=== PATIENT | female | born 1975 | race Caucasian/White ===

== ENCOUNTER → 2018-03-18 15:51 | Outpatient (CLI) | payer OTHER, SELFPAY ==
--- NOTE | 2018-03-18 | MM_ITS ---
MM Dig screening mamm BI w/CAD ORDERING PHYSICIAN : Aparna Farfan PATIENT AGE: 43 years GENDER: Female COMPARISON: February 2010, January 2013, March 2014, INDICATION: ITS.REASON: ROUTINE 43-year-old. No hormones. No new complaints noncontributory family history. TECHNIQUE: Standard CC and MLO images were obtained. R2 CAD reviewed. FINDINGS: Dense breast bilaterally, decreased sensitivity in breast of this diffusely dense character. Mild asymmetry again noted similar to previous studies. But prior films are helpful in demonstrating no prominent significant new findings. Stable overall breast pattern with no dominant mass or suspicious calcification features. RIGHT BREAST:No significant new findings LEFT BREAST:No significant new findings IMPRESSION: . no significant new findings. Dense breasts decrease sensitivity mammography, but we see no significant new areas of concern. Bilateral follow-up in one year recommended. Self breast examination may be of benefit & if any palpable areas arise ultrasound can be useful compliment to mammography in breast of this diffuse increased density. BI-RADS Category: 2 Benign Finding(s) RECOMMENDED FOLLOW-UP: 1YR 1 YEAR FOLLOW-UP (A letter has been sent to the patient regarding results of the study.)
[2018-03-18 16:37] LABS: Basophils % 0.5 % (0.1-2.0); Eosinophils # 0.1 K/mm3 (0.0-0.4); Eosinophils % 1.3 % (0.1-12.0); Hematocrit 46.9 % (37.0-47.0); Hemoglobin 15.4 g/dL (12.2-16.2); Lymphocytes # 2.3 K/mm3 (0.7-4.5); Lymphocytes % 30.5 K/mm3 (10-50); Mean Corpuscular HGB Conc 32.8 g/dL (31.8-35.4); Mean Corpuscular Hemoglobin 31.3 pg (27.0-31.2); Mean Corpuscular Volume 95.3 fl (81-99); Mean Platelet Volume 9.6 fl (7.4-10.4); Monocytes # 0.5 K/mm3 (0.1-1.0); Monocytes % 5.9 % (1.7-9.3); Neutrophils # 4.7 K/mm3 (1.8-7.8); Neutrophils % 61.9 % (37.0-80.0); Platelet Count 202 K/mm3 (142-424); Red Blood Count 4.92 M/mm3 (4.20-5.40); Red Cell Distribution Width 12.4 % (11.5-17.5); White Blood Count 7.6 K/mm3 (4.8-10.8)
[2018-03-18 18:57] LABS: Alanine Aminotransferase 27 U/L (12-78); Albumin Level 3.8 gm/dL (3.4-5.0); Albumin/Globulin Ratio 1.3 (1.1-1.8); Alkaline Phosphatase 100 U/L (46-116); Anion Gap 13.3 mEq/L (5-15); Aspartate Amino Transferase 17 U/L (15-37); Bilirubin,Total 0.5 mg/dL (0.2-1.0); Blood Urea Nitrogen 4 mg/dL (7-18); Calcium 8.7 mg/dL (8.5-10.1); Carbon Dioxide 28 mmol/L (21.0-32.0); Chloride 102 mmol/L (98-107); Chol/HDL Ratio 3.2 (1-3.5); Cholesterol 159 mg/dL (140-200); Creatinine,Serum 0.56 mg/dL (0.55-1.02); Estimated Glomerular Filt Rate 117 ml/min (>60); GFR (African American) 142 ML/MIN (>60); Globulin 2.9 gm/dl (1.3-3.2); Glucose 102 mg/dL (74-106); HDL Cholesterol 50 mg/dL (29-89); LDL Cholesterol 97 mg/dL (0-130); Potassium 3.3 mmoL/L (3.5-5.1); Sodium 140 mmol/L (136-145); Total Protein,Serum 6.7 gm/dL (6.4-8.2); Triglycerides 62 mg/dL (30-200); VLDL Cholesterol 12 mg/dL (0-40)
[2018-03-20 07:10] LABS: Vitamin B12 432 pg/mL (232-1245)
[2018-03-20 15:42] LABS: Vitamin D 25 Hydroxy 47.3 ng/mL (30.0-100.0)
== END ==
LOC: RAD 15:51
PROVIDERS: Family Provider Internal Medicine; PCP Internal Medicine Adolescent Medicine; Visit Provider Nurse Practitioner Family
DX: Z00.00 Encounter for general adult medical examination without abnormal findings (principal); Z12.31 Encounter for screening mammogram for malignant neoplasm of breast; R53.83 Other fatigue
CPT/HCPCS: 77067; 80053; 80061; 82607; 82652; 84443; 85025

== ENCOUNTER → 2019-07-02 11:34 | Outpatient (CLI) | payer OTHER, SELFPAY ==
--- NOTE | 2019-07-02 11:40 | XR_ITS ---
PROCEDURE: XR FOOT LT MIN 3V CLINICAL INDICATION: LEFT FOOT PAIN COMPARISON: No exams were available for comparison FINDINGS: There is a nondisplaced fracture of the distal shaft of the 5th metatarsal without significant displacement or angulation. There is no involvement of the joint space. The joint spaces are well-preserved. No significant degenerative/arthritic changes. No erosive changes evident. Other findings:None. IMPRESSION: Fracture distal shaft 5th metatarsal. Dictated by: Hao Flores 07/02/2019 12:57 Electronically signed by Hao Flores in [place] 07/02/2019 12:57
== END ==
PROVIDERS: PCP Internal Medicine Adolescent Medicine; Visit Provider Nurse Practitioner Family
DX: M79.672 Pain in left foot (principal)
CPT/HCPCS: 73630

== ENCOUNTER 2019-07-03 16:21 | Outpatient (RCR) | payer OTHER, SELFPAY | END 2019-07-03 17:00 | disposition home or self-care (01) | LOC: PT 16:21 | PROVIDERS: Visit Provider Internal Medicine Adolescent Medicine | DX: S92.355A Nondisplaced fracture of fifth metatarsal bone, left foot, initial encounter for closed fracture (principal); T14.8XXA Other injury of unspecified body region, initial encounter | CPT/HCPCS: 97760 ==

== ENCOUNTER → 2019-08-10 08:32 | Outpatient (CLI) | payer OTHER, SELFPAY ==
--- NOTE | 2019-08-10 08:48 | MM_ITS ---
PROCEDURE: MM DIG SCREENING MAMM BI W/CAD CLINICAL INDICATION: SCREENING There is no personal or family history of breast cancer. COMPARISON: [facility] DIG MAMM-SCREEN VIRIDIANA from 01/27/2013 [facility] DIG MAMM-SCREEN VIRIDIANA from 03/16/2014 [facility] MM Dig screening mamm BI w/CAD from 03/18/2018 TECHNIQUE: Standard CC and MLO images and 3D Tomosynthesis was obtained. R2 CAD reviewed. FINDINGS: There is a markedly dense and diffuse heterogenic parenchymal pattern bilaterally. Tomogram images are most helpful in this type of breast parenchyma. There is a possible asymmetric density central portion left breast somewhat indeterminate even with tomogram images. This likely is asymmetric glandular tissue with surrounding normal appearing fat however recommend the patient return for spot compression views an ultrasound may be necessary as well. There are no suspicious microcalcifications. IMPRESSION: Dense and heterogenic parenchymal pattern with possible developing asymmetric density left breast versus summation shadow of dense and heterogenic glandular elements BI-RAD Category: 0 Need Additional Imaging Evaluation FOLLOW-UP: IMM Immediate Follow-up Recommended (A letter has been sent to the patient regarding results of the study.) Dictated by: Dr. Rafael Phillips MD 08/12/2019 12:[address] Rafael Phillips MD in [place] 08/12/2019 12:31
== END ==
PROVIDERS: PCP Internal Medicine Adolescent Medicine; Visit Provider Nurse Practitioner Family
DX: Z12.31 Encounter for screening mammogram for malignant neoplasm of breast (principal)
CPT/HCPCS: 77063; 77067

== ENCOUNTER → 2019-11-12 14:37 | Outpatient (CLI) | payer OTHER, SELFPAY ==
--- NOTE | 2019-11-12 14:45 | MM_ITS ---
PROCEDURE: MM DIG MAMM DX UNILAT LT CAD Digital Breast Tomosynthesis Included Left breast ultrasound complete with axilla 8 and CLINICAL INDICATION: ABN MAMM COMPARISON: [facility] DIG MAMM-SCREEN VIRIDIANA from 03/16/2014 [facility] MM Dig screening mamm BI w/CAD from 03/18/2018 MM DIG SCREENING MAMM BI W/CAD from 08/10/2019 US BREAST LT COMPLETE from 11/12/2019 TECHNIQUE: Standard CC and MLO images and 3D Tomosynthesis was obtained. R2 CAD reviewed. FINDINGS: There is dense fibroglandular tissue. No malignant appearing mass or malignant-appearing microcalcification. Left breast ultrasound: At 3 o'clock position there is a 10 x 5 mm hypoechoic nodule with through transmission of sound and increased echogenicity centrally which may be due to small lymph node. At 6 o'clock there is a complicated cyst at 8 x 3 mm IMPRESSION: Probably benign findings. Recommend six-month sonographic and mammographic follow-up BI-RAD Category: 3 Probably Benign Finding Short Term Follow-up FOLLOW-UP: 6M 6Month Follow-up (A letter has been sent to the patient regarding results of the study.) Dictated by: Jerrell Cavanaugh MD 11/27/2019 09:33 Electronically signed by Jerrell Cavanaugh MD in [place] 11/27/2019 09:33
== END ==
LOC: RAD 14:37
PROVIDERS: PCP Internal Medicine Adolescent Medicine; Visit Provider Internal Medicine Adolescent Medicine
DX: R92.8 Other abnormal and inconclusive findings on diagnostic imaging of breast (principal)
CPT/HCPCS: 76641; 77061; 77065; G0279

== ENCOUNTER → 2021-01-26 15:16 | Outpatient (CLI) | payer OTHER, SELFPAY ==
--- NOTE | 2021-01-26 15:24 | XR_ITS ---
PROCEDURE: XR FOOT RT MIN 3V CLINICAL INDICATION: CELLULITIS OF FOOT COMPARISON: CR XR FOOT LT MIN 3V from 07/02/2019 FINDINGS: No fracture or dislocation. No lytic or blastic change. There is normal mineralization. The joint spaces are well-preserved. No significant degenerative/arthritic changes. No erosive changes evident. Other findings: No radiopaque foreign body apparent. No soft tissue gas. IMPRESSION: No acute findings. Dictated by: Jerrell Cavanaugh MD 01/26/2021 16:13 Jerrell Cavanaugh MD in [place] 01/26/2021 16:13
[2021-01-26 16:08] LABS: Basophils # 0.1 K/mm3 (0-0.2); Basophils % 1.1 % (0.1-2.0); Eosinophils # 0.3 K/mm3 (0.0-0.4); Eosinophils % 3.1 % (0.1-12.0); Hematocrit 39.6 % (37.0-47.0); Hemoglobin 13.9 g/dL (12.2-16.2); Lymphocytes # 2.2 K/mm3 (0.7-4.5); Lymphocytes % 25.2 % (10-50); Mean Corpuscular HGB Conc 35.2 g/dL (31.8-35.4); Mean Corpuscular Hemoglobin 31.4 pg (27.0-31.2); Mean Corpuscular Volume 89.1 fl (81-99); Monocytes # 0.4 K/mm3 (0.1-1.0); Neutrophils # 5.7 K/mm3 (1.8-7.8); Neutrophils % 65.6 % (37.0-80.0); Platelet Count 259 K/mm3 (142-424); Red Blood Count 4.45 M/mm3 (4.20-5.40); Red Cell Distribution Width 13.5 % (11.5-17.5); White Blood Count 8.7 K/mm3 (4.8-10.8)
[2021-01-26 16:41] LABS: Chloride 98 mmol/L (98-107); Sodium 138 mmol/L (136-145)
[2021-01-26 16:42] LABS: Potassium 3.7 mmoL/L (3.5-5.1)
[2021-01-26 16:44] LABS: Alanine Aminotransferase 18 U/L (12-78); Albumin Level 4.3 g/dl (3.5-5.0); Albumin/Globulin Ratio 1.7 (1.1-1.8); Alkaline Phosphatase 109 U/L (38-126); Anion Gap 10.7 mEq/L (5-15); Aspartate Amino Transferase 25 U/L (14-36); Bilirubin,Total 0.3 mg/dl (0.2-1.3); Blood Urea Nitrogen 3 mg/dl (7-17); Carbon Dioxide 33 mmol/L (22.0-30.0); Estimated Glomerular Filt Rate 132 ml/min (>60); GFR (African American) 159 ML/MIN (>60); Globulin 2.6 g/dL (1.3-3.2); Total Protein,Serum 6.9 g/dl (6.3-8.2)
[2021-01-26 16:45] LABS: Calcium 9.2 mg/dl (8.4-10.2); Chol/HDL Ratio 2.7 (1-3.5); Cholesterol 173 mg/dl (140-200); Glucose 91 mg/dl (74-100); HDL Cholesterol 63 mg/dl (40-60); Triglycerides 70 mg/dl (30-150); VLDL Cholesterol 14 mg/dL (0-40)
[2021-01-26 16:51] LABS: C-Reactive Protein 13.1 mg/L (0-4)
[2021-01-26 16:56] LABS: Direct LDL Cholesterol 92.24 mg/dL (100-129)
[2021-01-26 17:02] LABS: 25-OH Vitamin D, Total 50.1 ng/mL (30-100)
[2021-01-26 17:33] LABS: Erythrocyte Sedimentation Rate 23 mm/hr (0-20)
[2021-01-26 18:31] LABS: Vitamin B12 291 pg/mL (239-931)
== END ==
PROVIDERS: PCP Nurse Practitioner Family; Visit Provider Nurse Practitioner Family
DX: Z00.00 Encounter for general adult medical examination without abnormal findings (principal); R53.83 Other fatigue; L03.119 Cellulitis of unspecified part of limb
CPT/HCPCS: 36415; 73630; 80053; 80061; 82306; 82607; 84443; 85025; 85651; 86140

== ENCOUNTER → 2021-02-28 14:34 | Outpatient (CLI) | payer OTHER, SELFPAY | PROVIDERS: PCP Nurse Practitioner Family; Visit Provider Nurse Practitioner | DX: Z20.822 Contact with and (suspected) exposure to COVID-19 (principal) | CPT/HCPCS: C9803; U0003; U0005 ==

== ENCOUNTER 2021-03-15 09:53 | Emergency (ER) | payer OTHER, SELFPAY ==
[2021-03-15 10:00] VITALS: BP 118/92; PULSE 128; RESP 18; TEMP 36.8; O2SAT 98; BMI 18.6
--- NOTE | 2021-03-15 10:01 | PC.NURSE ---
Called for CT stroke protocol at this time
--- NOTE | 2021-03-15 10:02 | CT_ITS ---
PROCEDURE: CT HEAD/BRAIN WO CON CLINICAL INDICATION: stroke protocol Headache COMPARISON: No exams were available for comparison TECHNIQUE: Axial images obtained. All CT scans at the facility use one or more dose reduction, viz: automated exposure control, ma/kV adjustment per patient size (including targeted exams where dose is matched to indication, i.e. head), or iterative reconstruction technique. FINDINGS: No midline shift, mass effect, intracranial hemorrhage, hydrocephalus, or extra-axial fluid collection is evident. There is a 2 cm area of decreased attenuation in the left parietal occipital region. This could represent an area of acute or subacute infarction or even an area of encephalomalacia.. Suggest MRI for further evaluation. No intracranial hemorrhage apparent. The calvarium has an unremarkable appearance. No mastoid effusion. No sinus air-fluid level. IMPRESSION: 2 cm area of decreased attenuation in the peripheral aspect of the left parietal occipital junction which could represent an area of acute/subacute infarction or an area of encephalomalacia. Consider MRI for further evaluation. Dictated by: Jerrell Cavanaugh MD 03/15/2021 10:24 Jerrell Cavanaugh MD in [place] 03/15/2021 10:24
--- NOTE | 2021-03-15 10:03 | PC.NURSE ---
rad notified of Ct head stroke protocol
[2021-03-15 10:04] VITALS: BMI 18.6
--- NOTE | 2021-03-15 10:06 | HMH.EDGENADL ---
ED Disposition Clinical Impression: Stroke Qualifiers: CVA mechanism: embolism Precerebral and cerebral artery: unspecified cerebral artery Qualified Code(s): I63.40 - Cerebral infarction due to embolism of unspecified cerebral artery Disposition: Xfer Short-Term Hosp Condition on Discharge: Fair Referrals: James Harris MD [Primary Care Provider] - Forms: Transfer Record - ED - Critical Care Critical Care Time: No Attestation: On , the high probability of a clinically significant, sudden or life threatening deterioration of the following system(s) required my full and direct attention, intervention and personal management. The time I documented below is in addition to time spent performing reported procedures but includes the following listed in this critical care notation. Medical Decision Making - Ramon Inquiry Pt receiving controlled substance: No Vital Signs: 03/15/21 10:00 03/15/21 10:31 03/15/21 13:13 Temperature 98.2 F Temperature Source Oral Pulse Rate 115 H 110 H Pulse Rate [Right Radial] 128 H Respiratory Rate 18 16 Blood Pressure 132/87 127/82 Blood Pressure [Right Arm] 118/92 H Blood Pressure Mean [Right Arm] 100 Blood Pressure Source Automatic Cuff Blood Pressure Source [Right Arm] Automatic Cuff Blood Pressure Position Sitting Blood Pressure Position [Right Arm] Sitting 02 Sat by Pulse Oximetry 98 97 98 Oxygen Delivery Method Room Air Room Air - Lab Data Lab Results 03/15/21 10:31: WBC 5.6, RBC 4.93, Hgb 15.6, Hct 45.0, MCV 91.4, MCH 31.6 H, MCHC 34.6, RDW 12.9, Plt Count 241, MPV 9.2, Neut % (Auto) 69.3, Lymph % (Auto) 24.5, [place] % (Auto) 4.5, Eos % (Auto) 1.0, Baso % (Auto) 0.8, Neut # (Auto) 3.9, Lymph # (Auto) 1.4, [place] # (Auto) 0.3, Eos # (Auto) 0.1, Baso # (Auto) 0.0 03/15/21 10:31: Sodium 139, Potassium 4.1, Chloride 103, Carbon Dioxide 30, Anion Gap 10.1, BUN 7, Creatinine 0.50 L, Estimated Creat Clear 113, Estimated GFR 132, Est GFR ( Amer) 159, Glucose 129 H, Calcium 9.4, Total Bilirubin 0.5, AST 26, ALT 16, Alkaline Phosphatase 99, C-Reactive Protein 6.3 H, Total Protein 7.3, Albumin 4.2, Globulin 3.1, Albumin/Globulin Ratio 1.4 03/15/21 10:31: Plasma/Serum Alcohol < 10 03/15/21 10:31: ESR 13 03/15/21 11:17: SARS-CoV-2 (PCR) Not detected, Influenza A Untype (PCR) Not detected, Influenza Type B (PCR) Not detected 03/15/21 12:36: Urine Color Yellow, Urine Appearance Sl cloudy, Urine pH 6.5, Ur Specific Riley 1.010, Urine Protein Negative, Urine Glucose (UA) Negative, Urine Ketones Trace, Urine Blood Negative, Urine Nitrate Negative, Urine Bilirubin Negative, Urine Urobilinogen 0.2, Ur Leukocyte Esterase Negative, Urine RBC None, Urine WBC 3-5, Ur Squamous Epith Cells 3-5, Urine Bacteria Trace 03/15/21 12:36: Urine Opiates Screen Negative, Urine Methadone Screen Negative, Ur Barbituates Screen Negative, Ur Phencyclidine Scrn Negative, Ur Amphetamines Screen Negative, U Benzodiazepines Scrn Positive H, Urine Cocaine Screen Negative, U Marijuana (THC) Screen Negative Result diagrams: 03/15/21 10:31 03/15/21 10:31 - CT Data CT Scan: Head Time Received: 10:[address] Reviewed: Yes: I have viewed the radiologist's interpretation Findings Narrative: PROCEDURE: CT HEAD/BRAIN WO CON CLINICAL INDICATION: stroke protocol Headache COMPARISON: No exams were available for comparison TECHNIQUE: Axial images obtained. All CT scans at the facility use one or more dose reduction, viz: automated exposure control, ma/kV adjustment per patient size (including targeted exams where dose is matched to indication, i.e. head), or iterative reconstruction technique. FINDINGS: No midline shift, mass effect, intracranial hemorrhage, hydrocephalus, or extra-axial fluid collection is evident. There is a 2 cm area of decreased attenuation in the left parietal occipital region. This could represent an area of acute or subacute infarction or even an a
--- NOTE | 2021-03-15 10:07 | PC.NURSE ---
rad staff at to take pt to Ct [facility] at
--- NOTE | 2021-03-15 10:11 | PC.NURSE ---
pt to CT
--- NOTE | 2021-03-15 10:11 | PC.NURSE ---
Pt to rad
--- NOTE | 2021-03-15 10:20 | PC.NURSE ---
pt return from Ct at this time
[2021-03-15 10:31] VITALS: BP 132/87; PULSE 115; O2SAT 97
--- NOTE | 2021-03-15 10:34 | PC.NURSE ---
[facility] states after speaking with Dr. Cavanaugh pt is going to go up for an MRI Brain
--- NOTE | 2021-03-15 10:36 | PC.NURSE ---
[facility] PARK[facility] speaking with Dr. Harris
--- NOTE | 2021-03-15 10:37 | PC.NURSE ---
spoke with Maranda in MRI, states she is in the middle of something and will call me back with a time for pt MRI
--- NOTE | 2021-03-15 10:38 | ECG_ITS ---
APPROVED REPORT Exam: Resting ECG HR:94 bpm ECG Measurements Heart Rate 94 AXES MT 130 P 65 QRSd 82 QRS 38 QT 356 T 56 QTc 445 Conclusion Normal sinus rhythm Biatrial enlargement Abnormal ECG Electronically signed by : James Harris MD 03/16/2021 17:49:15
[2021-03-15 10:41] LABS: Basophils % 0.8 % (0.1-2.0); Eosinophils # 0.1 K/mm3 (0.0-0.4); Hemoglobin 15.6 g/dL (12.2-16.2); Lymphocytes # 1.4 K/mm3 (0.7-4.5); Lymphocytes % 24.5 % (10-50); Mean Corpuscular HGB Conc 34.6 g/dL (31.8-35.4); Mean Corpuscular Hemoglobin 31.6 pg (27.0-31.2); Mean Corpuscular Volume 91.4 fl (81-99); Mean Platelet Volume 9.2 fl (7.4-10.4); Monocytes # 0.3 K/mm3 (0.1-1.0); Monocytes % 4.5 % (1.7-9.3); Neutrophils # 3.9 K/mm3 (1.8-7.8); Neutrophils % 69.3 % (37.0-80.0); Platelet Count 241 K/mm3 (142-424); Red Blood Count 4.93 M/mm3 (4.20-5.40); Red Cell Distribution Width 12.9 % (11.5-17.5); White Blood Count 5.6 K/mm3 (4.8-10.8)
[2021-03-15 10:49] LABS: Alanine Aminotransferase 16 U/L (12-78); Albumin Level 4.2 g/dl (3.5-5.0); Albumin/Globulin Ratio 1.4 (1.1-1.8); Alkaline Phosphatase 99 U/L (38-126); Anion Gap 10.1 mEq/L (5-15); Aspartate Amino Transferase 26 U/L (14-36); Bilirubin,Total 0.5 mg/dl (0.2-1.3); Blood Urea Nitrogen 7 mg/dl (7-17); Calcium 9.4 mg/dl (8.4-10.2); Carbon Dioxide 30 mmol/L (22.0-30.0); Chloride 103 mmol/L (98-107); Creatinine Clearance Estimated 113 mL/min (50-200); Estimated Glomerular Filt Rate 132 ml/min (>60); GFR (African American) 159 ML/MIN (>60); Globulin 3.1 g/dL (1.3-3.2); Glucose 129 mg/dl (74-100); Potassium 4.1 mmoL/L (3.5-5.1); Sodium 139 mmol/L (136-145); Total Protein,Serum 7.3 g/dl (6.3-8.2)
[2021-03-15 10:54] LABS: C-Reactive Protein 6.3 mg/L (0-4)
--- NOTE | 2021-03-15 10:55 | XR_ITS ---
PROCEDURE: XR CHEST PORTABLE CLINICAL HISTORY: AMS COMPARISON: CR XR RIBS LT MIN 3V W CXR1V from 05/19/2019 FINDINGS: The cardiomediastinal silhouette and pulmonary vascularity are within normal limits. The lungs are clear without infiltrates, suspicious nodules, or pleural effusions. No acute bony abnormalities. IMPRESSION: No acute findings. Dictated by: Jerrell Cavanaugh MD 03/15/2021 11:34 Jerrell Cavanaugh MD in [place] 03/15/2021 11:34
[2021-03-15 10:58] LABS: Ethyl Alcohol < 10 mg/dl (0-10)
--- NOTE | 2021-03-15 10:59 | MR_ITS ---
PROCEDURE: MR HEAD/BRAIN WO CON CLINICAL INDICATION: AMS Word salad, headache, abnormal CT scan COMPARISON: No exams were available for comparison TECHNIQUE: Routine multiplanar multi echo sequences are performed without gadolinium enhancement. FINDINGS: There are numerous acute areas restricted diffusion on the left consistent with areas of acute infarction. These include a 2 cm area of acute infarction in the left occipital lobe posteriorly with an additional peripheral area acute infarction in the left parietal lobe posteriorly measuring approximately 2 cm. These are somewhat gyriform in nature. Central to these areas there are small infarctions in the optic radiations. There are numerous small areas of acute infarction in the left frontal area and da silva radiata on the left as well as the left anterior parietal region. Small area restricted diffusion is present in the white matter of the left frontal lobe as well as the left parietal lobe consistent with small acute infarctions. A small lacunar infarction is present in the left globus pallidus less than 1 cm. No evidence of hemorrhage. No midline shift. The cerebellopontine angles are unremarkable. The cerebellum is unremarkable as is the midbrain. No hydrocephalus. No intra or extra-axial hemorrhage. The pituitary, optic chiasm, corpus callosum, and craniocervical junction have an unremarkable appearance. No mastoid effusion or sinus air-fluid level. IMPRESSION: Numerous areas of restricted diffusion all on the left consistent with multiple small areas of acute infarction. The largest areas are in the left parietal occipital region. With this distribution, 1 would be concerned about an embolic phenomenon. ER physician notified of the above findings on 03/15/2021 at 1:15 p.m. Dictated by: Jerrell Cavanaugh MD 03/15/2021 13:24 Jerrell Cavanaugh MD in [place] 03/15/2021 13:24
[2021-03-15 11:00] VITALS: BP 119/82; PULSE 97; RESP 18; O2SAT 97
[2021-03-15 11:03] LABS: Erythrocyte Sedimentation Rate 13 mm/hr (0-20)
--- NOTE | 2021-03-15 11:22 | PC.NURSE ---
Covid swab sent to lab.
[2021-03-15 11:23] LABS: Coronavirus 19, PCR Not Detected (NotDetected); Influenza A, PCR Not Detected (NotDetected); Influenza B, PCR Not Detected (NotDetected)
[2021-03-15 11:30] VITALS: BP 112/78
--- NOTE | 2021-03-15 11:42 | PC.NURSE ---
pt to MRI
[2021-03-15 12:47] LABS: Microscopic, Urine URINE MICROSCOPIC (MICROSCOPIC)
[2021-03-15 12:52] LABS: Appearance,Urine SL CLOUDY (Clear); Bilirubin,Urine Negative (Negative); Blood, Urine Negative (Negative); Color,Urine YELLOW (Yellow); Glucose,Urine (UA) Negative (Negative); Ketones,Urine TRACE (Negative); Leukocyte Esterase,Urine Negative (Negative); Nitrate,Urine Negative (Negative); PH,Urine 6.5 (5.0-8.5); Protein,Urine Negative (Negative); Urobilinogen,Urine 0.2 EU/dl (0.2)
[2021-03-15 13:04] LABS: Benzodiazepines Screen,Urine Positive ng/ml (<200)
[2021-03-15 13:05] LABS: Amphetamine/Metha Screen,Urine Negative ng/ml (<1000); Barbiturates Screen,Urine Negative ng/ml (<200)
[2021-03-15 13:06] LABS: Cannabinoid Screen,Urine Negative ng/ml (<50); Methadone Screen,Urine Negative ng/ml (<300)
[2021-03-15 13:07] LABS: Cocaine Screen,Urine Negative ng/ml (<300)
[2021-03-15 13:08] LABS: Opiate Screen,Urine Negative ng/ml (<300); Phencyclidine Screen,Urine Negative ng/ml (<25)
[2021-03-15 13:10] LABS: Bacteria,Urine Trace /lpf
[2021-03-15 13:13] VITALS: BP 127/82; PULSE 110; RESP 16; O2SAT 98
--- NOTE | 2021-03-15 13:14 | PC.NURSE ---
speaking with Dr. Harris
--- NOTE | 2021-03-15 13:16 | PC.NURSE ---
calling to update him on POC and what was going on. advised he and her sister would be on their way up.
--- NOTE | 2021-03-15 13:19 | PC.NURSE ---
speaking with stroke navigator at [facility] at this time
--- NOTE | 2021-03-15 13:35 | PC.NURSE ---
report called to Kimberly Figueroa RN at [facility] at this time
[2021-03-15 13:57] VITALS: BP 130/75; PULSE 103; RESP 16; TEMP 36.7; O2SAT 97
--- NOTE | 2021-03-15 13:57 | PC.NURSE ---
report given to banner
--- NOTE | 2021-03-15 14:01 | PC.NURSE ---
[facility]
== END 2021-03-15 13:57 | disposition short-term general hospital (02) ==
PROVIDERS: Emergency Provider Emergency Medicine; PCP Internal Medicine Adolescent Medicine
DX: I63.40 Cerebral infarction due to embolism of unspecified cerebral artery (principal); R29.704 NIHSS score 4; F17.210 Nicotine dependence, cigarettes, uncomplicated; M79.7 Fibromyalgia
CPT/HCPCS: 70450; 70551; 71045; 80053; 80305; 81001; 85025; 85651; 86140; 93005; 99284; C9803; U0003; U0005

== ENCOUNTER 2023-03-11 14:25 | Emergency (ER) | payer OTHER, SELFPAY ==
[2023-03-11 14:30] VITALS: BP 121/80; PULSE 105; RESP 18; TEMP 36.9; O2SAT 95; BMI 20.1
--- NOTE | 2023-03-11 14:34 | XR_ITS ---
FINAL REPORT CLINICAL HISTORY: sob, COPD COMPARISON: 03/15/2021 FINDINGS: Two views of the chest were obtained. The heart size and pulmonary vascularity are within normal limits. The mediastinum is normal. There is linear atelectasis in the right midlung. There is no pneumothorax. The bony thorax is intact. IMPRESSION: Linear atelectasis in the right mid lung. Reviewed, Interpreted and Dictated by Mayank Wade III, MD Transcribed by Jeanie Hanson Authenticated and [facility]
--- NOTE | 2023-03-11 14:41 | EXP.UTC ---
Discharge Plan Disposition Patient Disposition: Home, Self-Care Condition: Good Prescriptions Prescriptions: New benzonatate [benzonatate] 100 mg capsule 100 mg PO TIDP PRN (Reason: Cough) Qty: 30 0RF amoxicillin-pot clavulanate 500-125 mg tablet 1 tab PO BID Qty: 20 0RF methylprednisolone 4 mg Tablets,Dose Pack 4 mg PO DIRECTED Qty: 21 0RF Referrals Follow up/Referrals: Provider,Referral, MD [Primary Care Provider] - See instructions Activity Restrictions/Add. Instructions Additional Instructions/Restrictions: Drink plenty of fluids. Take tylenol or ibuprofen for pain or fever. Take the medications as directed. Follow up with your regular doctor. GO TO THE ER FOR ANY WORSENING SYMPTOMS Don't start the oral steroids until tomorrow, since you had the shot here today. Clinical Impressions Clinical Impression: COPD exacerbation Stand Alone Forms Stand Alone Forms: Work/School Release Instructions Patient Instructions: Chronic Obstructive Pulmonary Disease, DI for Chronic Obstructive Pulmonary Disease Discharge ED Provider: Brian Shepard [facility] General Stated complaint: cough eunny nose congestion weak soa Time Seen by Provider: 03/11/23 14:41 Related Data Previous Rx's Medication Instructions Recorded amoxicillin 500 mg-potassium 1 tab PO BID #20 tabs 03/11/23 clavulanate 125 mg tablet benzonatate 100 mg capsule 100 mg PO TIDP PRN Cough #30 caps 03/11/23 methylprednisolone 4 mg tablets in 4 mg PO DIRECTED #21 tabs 03/11/23 a dose pack Allergies Allergy/AdvReac Type Severity Reaction Status Date / Time No Known Allergies Allergy Unverified 03/11/23 15:53 [facility] Disclaimer: The information contained in this section may have been updated after the patient was seen, as this information can be updated by other users. Social History Smoking Status: Current every day smoker alcohol intake: never current occupational status: other Travel in the last 8 weeks: None ROS Obtained: Yes All systems reviewed & no additional complaints except as documented Constitutional Constitutional: Reports poor appetite Eyes Eyes: Reports system reviewed and no additional complaints, except as documented ENT Ears, Nose, Mouth, and Throat: Reports as per HPI Cardiovascular Cardiovascular: Reports system reviewed and no additional complaints, except as documented and Denies chest pain Respiratory Respiratory: Denies shortness of breath, Denies chest congestion, Reports cough, Denies stridor and Denies wheezing Gastrointestinal Gastrointestingal: Reports system reviewed and no additional complaints, except as documented; Denies abdominal pain, diarrhea or vomiting Musculoskeletal Musculoskeletal: Reports system reviewed and no additional complaints, except as documented and Denies arthralgias Integumentary/Breasts Skin/Breast: Reports system reviewed and no additional complaints, except as documented and Denies rash Neurologic Neurologic: Denies paresthesias Allergic/Immunologic Allergic/Immunologic: Denies wheezing Physical Exam General General appearance: alert and in no apparent distress Head Head exam: atraumatic, normocephalic and normal inspection Eye Eye exam: Present normal appearance, PERRL and EOMI ENT ENT exam: Present normal exam, normal oropharynx, mucous membranes moist, TM's normal bilaterally and normal external ear exam Neck Neck exam: Present normal inspection, full ROM and trachea midline; Absent meningismus or lymphadenopathy Chest Chest inspection: Present normal inspection and symmetric chest wall rise; Absent tenderness Respiratory Respiratory exam: Present normal lung sounds bilaterally; Absent respiratory distress Cardiovascular Cardiovascular exam: Present regular rate and normal rhythm; Absent JVD Abdominal Exam Abdominal exam: Present soft and normal bowel sounds; Absent dist
[2023-03-11 16:03] VITALS: BP 121/80; PULSE 105; RESP 18; TEMP 36.9; O2SAT 95
== END 2023-03-11 16:03 | disposition home or self-care (01) ==
PROVIDERS: Emergency Provider Nurse Practitioner Family
DX: J44.1 Chronic obstructive pulmonary disease with (acute) exacerbation (principal); F17.210 Nicotine dependence, cigarettes, uncomplicated
CPT/HCPCS: 71046; 96372; 99204; 99212; G0463; J0696